=== PATIENT | female | born 1960 | race African-American/Black ===

== ENCOUNTER 2017-01-08 11:22 | Inpatient (IN) | payer OTHER ==
[2017-01-08 13:22] VITALS: BMI 21.3
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
[2017-01-08] MEDS ORDERED: NICOTINE POLACRILEX 2 MG GUM BC PRN (15:46)
[2017-01-08] MEDS ORDERED: IBUPROFEN 400 MG TABLET (FP) PO PRN (15:46)
[2017-01-08] MEDS ORDERED: chlordiazePOXIDE HCL 25 MG CAPSULE PO ONE (15:46)
[2017-01-08] MEDS ORDERED: P-EPHED 60MG/TRIPROLIDI 2.5MG TABLET PO PRN (15:46)
[2017-01-08] MEDS ORDERED: MAG HYDROX/AL HYDROX/SIMETH 30 ML UNIT-DOSE CUP PO PRN (15:46)
[2017-01-08] MEDS ORDERED: MAGNESIUM CITRATE 300 ML BOTTLE PO PRN (15:46)
[2017-01-08] MEDS ORDERED: guaiFENesin/D-METHORPHAN HB 10 ML UNIT-DOSE CUPS PO PRN (15:46)
[2017-01-08] MEDS ORDERED: MAGNESIUM HYDROX 2400MG/30ML ORAL SUSPENSION 30 ML CUP PO PRN (15:46)
[2017-01-08] MEDS ORDERED: ACETAMINOPHEN 325 MG TABLET (FP) PO PRN (15:46)
[2017-01-08] MEDS ORDERED: diphenhydrAMINE HCL 50 MG CAPSULE PO PRN (15:46)
[2017-01-08] MEDS ORDERED: chlordiazePOXIDE HCL 25 MG CAPSULE PO PRN (15:46)
[2017-01-08] MEDS ORDERED: LOPERAMIDE HCL 2 MG CAPSULE PO PRN (15:46)
[2017-01-08] MEDS ORDERED: hydrOXYzine PAMOATE 50 MG CAPSULE (FP) PO PRN (15:46)
[2017-01-08] MEDS ORDERED: MENTHOL/PHENOL 1 EACH UD MM PRN (15:46)
[2017-01-08] MEDS ORDERED: ALBUTEROL SO4 6.7 GM HFA INHALER IH PRN (15:58)
[2017-01-08] MEDS: chlordiazePOXIDE HCL 25 MG CAPSULE PO SCH ×2 (17:29→22:20)
[2017-01-08] MEDS: BACITRACIN 0.9 GM PACKET TP SCH (17:29)
[2017-01-08] MEDS: GABAPENTIN 300 MG CAPSULE (FP) PO SCH (22:20)
[2017-01-08] MEDS: THIAMINE HCL 100 MG TABLET (FP) PO SCH (22:20)
[2017-01-08 22:56] LABS: URINE APPEARANCE CLEAR; URINE BILIRUBIN NEGATIVE (NEGATIVE); URINE BLOOD NEGATIVE (NEGATIVE); URINE COLOR LTYELLOW; URINE GLUCOSE (UA) NEGATIVE (NEGATIVE); URINE KETONE NEGATIVE (NEGATIVE); URINE NITRITE NEGATIVE (NEGATIVE); URINE PROTEIN NEGATIVE (NEGATIVE); URINE UROBILINOGEN NEGATIVE E.U./dl (0.2-1.0)
[2017-01-08 23:09] LABS: URINE LEUK ESTERASE TRACE (NEGATIVE)
[2017-01-08 23:12] LABS: URINE BACTERIA RARE /hpf (NONE SEEN); URINE MUCUS RARE; URINE RBC 1 /hpf (0-3); URINE WBC 15 /hpf (3-5)
[2017-01-09] MEDS: chlordiazePOXIDE HCL 25 MG CAPSULE PO SCH ×5 (05:31→22:42)
[2017-01-09] MEDS: GABAPENTIN 300 MG CAPSULE (FP) PO SCH ×3 (05:31→22:42)
[2017-01-09 07:56] LABS: HIV 1 & 2 AB NEGATIVE; HIV 1 AGp24 NEGATIVE
[2017-01-09 10:00] LABS: MCH 31.5 pg (25.7-33.7); MCHC 32.6 g/dl (32.0-36.0); MEAN CELL VOLUME 96.5 fl (80-96); MEAN PLT VOLUME 8.5 fl (7.5-11.1); PLATELET COUNT 323 K/MM3 (134-434); RDW 12.9 % (11.6-15.6); WHITE BLOOD COUNT 5.4 K/mm3 (4.0-10.0)
[2017-01-09 10:35] LABS: ALK PHOS 138 U/L (45-117); ANION GAP 9 (8-16); BILIRUBIN,TOTAL 0.4 mg/dL (0.2-1.0); CALCIUM 9.4 mg/dL (8.5-10.1); CO2 25 mmol/L (21-32); CREATININE 0.8 mg/dL (0.55-1.02); GLUCOSE,RANDOM 79 mg/dL (74-106); SGOT/AST 22 U/L (15-37); SGPT/ALT 20 U/L (12-78); TOT PROT 7.6 g/dl (6.4-8.2)
[2017-01-09] MEDS: BACITRACIN 0.9 GM PACKET TP SCH (10:51)
[2017-01-09] MEDS: ASPIRIN 81 MG CHEWABLE TABLETS PO SCH (10:51)
[2017-01-09] MEDS: PRENATAL VITAMINS W/ FOLIC ACID TABLET (FP) PO SCH (10:51)
--- NOTE | 2017-01-09 13:44 | PN ---
[facility] CIWA - CIWA Score Nausea/Vomitin Muscle Tremors: 3 Anxiety: 3 Agitation: 2 Paroxysmal Sweats: 1-Minimal Palms Moist Orientation: 0-Oriented Tacttile Disturbances: 1-Very Mild Itch/Numbness Auditory Disturbances: 1-Very Mild Visual Disturbances: 1-Very Mild Sensitivity Headache: 2-Mild CIWA-Ar Total Score: 17 S Progress Note (SOAP) Subjective: ALERT,IRRITABLE,ANXIOUS,INTERRUPTED SLEEP,TREMOR Objective: 01/09/17 13:41 Vital Signs Temperature 97.2 F L 01/09/17 13:14 Pulse Rate 68 01/09/17 13:14 Respiratory Rate 18 01/09/17 13:14 Blood Pressure 104/69 01/09/17 13:14 O2 Sat by Pulse Oximetry (%) EKG NSR,RBBB,INVERTED T IN V2,V3 NO CHEST PAIN,NO SOB,NO DIZZINESS Laboratory Last Values WBC 5.4 K/mm3 (4.0-10.0) 01/09/17 06:00 RBC 3.84 M/mm3 (3.60-5.2) 01/09/17 06:00 Hgb 12.1 GM/dL (10.7-15.3) 01/09/17 06:00 Hct 37.1 % (32.4-45.2) 01/09/17 06:00 MCV 96.5 fl (80-96) H 01/09/17 06:00 MCHC 32.6 g/dl (32.0-36.0) 01/09/17 06:00 RDW 12.9 % (11.6-15.6) 01/09/17 06:00 Plt Count 323 K/MM3 (134-434) 01/09/17 06:00 MPV 8.5 fl (7.5-11.1) 01/09/17 06:00 Sickle Cell Screen Negative (NEGATIVE) 01/09/17 08:00 Sodium 142 mmol/L (136-145) 01/09/17 06:00 Potassium 4.2 mmol/L (3.5-5.1) 01/09/17 06:00 Chloride 108 mmol/L (98-107) H 01/09/17 06:00 Carbon Dioxide 25 mmol/L (21-32) 01/09/17 06:00 Anion Gap 9 (8-16) 01/09/17 06:00 BUN 6 mg/dL (7-18) L 01/09/17 06:00 Creatinine 0.8 mg/dL (0.55-1.02) 01/09/17 06:00 Creat Clearance w eGFR > 60 (>60) 01/09/17 06:00 Random Glucose 79 mg/dL (74-106) 01/09/17 06:00 Calcium 9.4 mg/dL (8.5-10.1) 01/09/17 06:00 Total Bilirubin 0.4 mg/dL (0.2-1.0) 01/09/17 06:00 AST 22 U/L (15-37) 01/09/17 06:00 ALT 20 U/L (12-78) 01/09/17 06:00 Alkaline Phosphatase 138 U/L (45-117) H 01/09/17 06:00 Total Protein 7.6 g/dl (6.4-8.2) 01/09/17 06:00 Albumin 4.0 g/dl (3.4-5.0) 01/09/17 06:00 Urine Color Ltyellow 01/08/17 22:22 Urine Appearance Clear 01/08/17 22:22 Urine pH 5.0 (5.0-8.0) 01/08/17 22:22 Ur Specific [place] 1.010 (1.005-1.025) 01/08/17 22:22 Urine Protein Negative (NEGATIVE) 01/08/17 22:22 Urine Glucose (UA) Negative (NEGATIVE) 01/08/17 22:22 Urine Ketones Negative (NEGATIVE) 01/08/17 22:22 Urine Blood Negative (NEGATIVE) 01/08/17 22:22 Urine Nitrite Negative (NEGATIVE) 01/08/17 22:22 Urine Bilirubin Negative (NEGATIVE) 01/08/17 22:22 Urine Urobilinogen Negative E.U./dl (0.2-1.0) 01/08/17 22:22 Ur Leukocyte Esterase Trace (NEGATIVE) H 01/08/17 22:22 Urine RBC 1 /hpf (0-3) 01/08/17 22:22 Urine WBC 15 /hpf (3-5) 01/08/17 22:22 Ur Epithelial Cells Few /hpf (FEW) 01/08/17 22:22 Urine Bacteria Rare /hpf (NONE SEEN) 01/08/17 22:22 Urine Mucus Rare 01/08/17 22:22 HIV 1&2 Antibody Screen Negative 01/08/17 15:00 HIV P24 Antigen Negative 01/08/17 15:00 Assessment: 01/09/17 13:43 WITHDRAWAL SYMPTOM Plan: CONTINUE DETOX
--- NOTE | 2017-01-09 15:47 | EKG ---
Test Reason : Blood Pressure : / mmHG Vent. Rate : 075 BPM Atrial Rate : 075 BPM P-R Int : 128 ms QRS Dur : 104 ms QT Int : 476 ms P-R-T Axes : 049 034 059 degrees QTc Int : 531 ms NORMAL SINUS RHYTHM INCOMPLETE RIGHT BUNDLE BRANCH BLOCK NONSPECIFIC T WAVE ABNORMALITY PROLONGED QT ABNORMAL ECG NO PREVIOUS ECGS AVAILABLE CLINICAL CORRELATION IS RECOMMENDED Confirmed by EMBER THORPE MD ([id number]) on 01/09/2017 3:47:20 PM Referred By: Confirmed By:EMBER THORPE MD
--- NOTE | 2017-01-09 17:45 | CONSULT ---
[facility] Psychiatric Consult - Data Date of interview: 01/09/17 Admission source: [facility] Identifying data: First admission to [facility] for this 56 y/o AA female seeking detox treatment for cocaine and alcohol dependence.Patient is , a mother of five,domiciled,unemployed and supported on welfare. Substance Abuse History: - Smoking Cessation. Smoking history: Current every day smoker. Have you smoked in the past 12 months: Yes. Aproximately how many cigarettes per day: 20. Cigars Per Day: 0. Hx Chewing Tobacco Use: No. Initiated information on smoking cessation: Yes. 'Breaking Loose' booklet given : 01/08/17 (GIVEN ON UNIT.). - Substance & Tx. History. Hx Alcohol Use: Yes. Hx Substance Use: Yes. Substance Use Type: Alcohol, Cocaine. Hx Substance Use Treatment: Yes (Many years ago; patient unable to remember name of facility.). - Substances Abused. Alcohol. Route: Oral. Frequency: Daily. Amount used : 10 40 oz beers. Age of first use: 16. Date of Last Use: 01/08/17. Crack. Route: Smoking. Frequency: Daily. Amount used: $50. Age of first use : 34. Date of Last Use: 01/08/17. Confirmed by patient. Medical History: Anemia,bronchial asthma,arthritis,lower back pain and a recent history of transient ischemic attacks. Psychiatric History: Patient is a poor historian.She admits to current psychiatric OPD care but she is unable to provide location.Diagnosed with MDD and Anxiety Disorder and prescribed lexapro and remeron (doses not recalled).Ms Rios reports a history of suicide attempts via various means (cutting, overdosing,running into traffic).Patient denies history of psychiatric hospitalizations. Physical/Sexual Abuse/Trauma History: Patient denies history of abuse. Additional Comment: Urine Drug Screen Results: ZULMA-Cocaine.Noted. Mental Status Exam - Mental Status Exam Alert and Oriented to: Time, Place, Person Cognitive Function: Grossly Intact (moderate memory deficits) Patient Appearance: Well Groomed Mood: Withdrawn, Anxious Affect: Constricted Patient Behavior: Fatigued, Appropriate, Cooperative Speech Pattern: Clear Voice Loudness: Normal Thought Process: Goal Oriented Thought Disorder: Not Present Hallucinations: Denies Suicidal Ideation: Denies Homicidal Ideation: Denies Insight/Judgement: Poor Sleep: Poorly, Difficulty falling asleep Appetite: Fair Muscle strength/Tone: Normal Gait/Station: Normal Psychiatric Findings - Problem List (Alpha 1, 2,3) (1) Alcohol dependence with uncomplicated withdrawal Current Visit: Yes Status: Acute (2) Cocaine dependence, uncomplicated Current Visit: Yes Status: Acute (3) Nicotine dependence Current Visit: Yes Status: Acute Qualifiers: Nicotine product type: cigarettes Substance use status: uncomplicated Qualified Code(s): F17.210 - Nicotine dependence, cigarettes, uncomplicated (4) Depressive disorder Current Visit: Yes Status: Chronic (5) Asthma Current Visit: Yes Status: Chronic Qualifiers: Asthma severity: mild intermittent Asthma complication type: uncomplicated Qualified Code(s): J45.20 - Mild intermittent asthma, uncomplicated (6) History of TIA (transient ischemic attack) Current Visit: Yes Status: Chronic (7) Insomnia Current Visit: Yes Status: Acute - Initial Treatment Plan Initial Treatment Plan: Psychoeducation.Detoxification.Medications : lexapro 20 mg po daily + remeron 7.5 mg po hs.Side effects/benefits discussed with patient.Eager to resume her medications.Consent (verbal) given.Observation.Pharmacy claims reviewed : scripts for remeron,gabapentin and lexapro were issued on 12/01/16 @ [facility]).
[2017-01-09] MEDS: THIAMINE HCL 100 MG TABLET (FP) PO SCH (22:41)
[2017-01-09] MEDS: MIRTAZAPINE 15 MG TABLET (FP) PO SCH (22:42)
[2017-01-10] MEDS: GABAPENTIN 300 MG CAPSULE (FP) PO SCH ×3 (06:30→22:10)
[2017-01-10] MEDS: chlordiazePOXIDE HCL 25 MG CAPSULE PO SCH ×2 (06:30→10:24)
[2017-01-10] MEDS: ASPIRIN 81 MG CHEWABLE TABLETS PO SCH (10:24)
[2017-01-10] MEDS: PRENATAL VITAMINS W/ FOLIC ACID TABLET (FP) PO SCH (10:24)
[2017-01-10] MEDS: ESCITALOPRAM OXALATE 20 MG TABLET (FP) PO SCH (10:24)
[2017-01-10] MEDS: BACITRACIN 0.9 GM PACKET TP SCH (10:24)
--- NOTE | 2017-01-10 11:36 | PN ---
S CIWA - CIWA Score Nausea/Vomitin Muscle Tremors: 3 Anxiety: 3 Agitation: 3 Paroxysmal Sweats: 1-Minimal Palms Moist Orientation: 0-Oriented Tacttile Disturbances: 1-Very Mild Itch/Numbness Auditory Disturbances: 1-Very Mild Visual Disturbances: 1-Very Mild Sensitivity Headache: 2-Mild CIWA-Ar Total Score: 18 BHS Progress Note (SOAP) Subjective: ALERT,IRRITABLE,ANXIOUS,INTERRUPTED SLEEP,TREMOR Objective: 01/10/17 11:34 Vital Signs Temperature 98.2 F 01/10/17 10:51 Pulse Rate 83 01/10/17 10:51 Respiratory Rate 16 01/10/17 10:51 Blood Pressure 95/71 01/10/17 10:51 O2 Sat by Pulse Oximetry (%) EKG NST,INVERTED T IN V 1 V2 V3 NO CHEST PAIN,NO SOB,NO DIZZINESS Laboratory Last Values WBC 5.4 K/mm3 (4.0-10.0) 01/09/17 06:00 RBC 3.84 M/mm3 (3.60-5.2) 01/09/17 06:00 Hgb 12.1 GM/dL (10.7-15.3) 01/09/17 06:00 Hct 37.1 % (32.4-45.2) 01/09/17 06:00 MCV 96.5 fl (80-96) H 01/09/17 06:00 MCHC 32.6 g/dl (32.0-36.0) 01/09/17 06:00 RDW 12.9 % (11.6-15.6) 01/09/17 06:00 Plt Count 323 K/MM3 (134-434) 01/09/17 06:00 MPV 8.5 fl (7.5-11.1) 01/09/17 06:00 Sickle Cell Screen Negative (NEGATIVE) 01/09/17 08:00 Sodium 142 mmol/L (136-145) 01/09/17 06:00 Potassium 4.2 mmol/L (3.5-5.1) 01/09/17 06:00 Chloride 108 mmol/L (98-107) H 01/09/17 06:00 Carbon Dioxide 25 mmol/L (21-32) 01/09/17 06:00 Anion Gap 9 (8-16) 01/09/17 06:00 BUN 6 mg/dL (7-18) L 01/09/17 06:00 Creatinine 0.8 mg/dL (0.55-1.02) 01/09/17 06:00 Creat Clearance w eGFR > 60 (>60) 01/09/17 06:00 Random Glucose 79 mg/dL (74-106) 01/09/17 06:00 Calcium 9.4 mg/dL (8.5-10.1) 01/09/17 06:00 Total Bilirubin 0.4 mg/dL (0.2-1.0) 01/09/17 06:00 AST 22 U/L (15-37) 01/09/17 06:00 ALT 20 U/L (12-78) 01/09/17 06:00 Alkaline Phosphatase 138 U/L (45-117) H 01/09/17 06:00 Total Protein 7.6 g/dl (6.4-8.2) 01/09/17 06:00 Albumin 4.0 g/dl (3.4-5.0) 01/09/17 06:00 Urine Color Ltyellow 01/08/17 22:22 Urine Appearance Clear 01/08/17 22:22 Urine pH 5.0 (5.0-8.0) 01/08/17 22:22 Ur Specific [place] 1.010 (1.005-1.025) 01/08/17 22:22 Urine Protein Negative (NEGATIVE) 01/08/17 22:22 Urine Glucose (UA) Negative (NEGATIVE) 01/08/17 22:22 Urine Ketones Negative (NEGATIVE) 01/08/17 22:22 Urine Blood Negative (NEGATIVE) 01/08/17 22:22 Urine Nitrite Negative (NEGATIVE) 01/08/17 22:22 Urine Bilirubin Negative (NEGATIVE) 01/08/17 22:22 Urine Urobilinogen Negative E.U./dl (0.2-1.0) 01/08/17 22:22 Ur Leukocyte Esterase Trace (NEGATIVE) H 01/08/17 22:22 Urine RBC 1 /hpf (0-3) 01/08/17 22:22 Urine WBC 15 /hpf (3-5) 01/08/17 22:22 Ur Epithelial Cells Few /hpf (FEW) 01/08/17 22:22 Urine Bacteria Rare /hpf (NONE SEEN) 01/08/17 22:22 Urine Mucus Rare 01/08/17 22:22 RPR Titer Nonreactive (NONREACTIVE) 01/09/17 06:00 HIV 1&2 Antibody Screen Negative 01/08/17 15:00 HIV P24 Antigen Negative 01/08/17 15:00 Assessment: 01/10/17 11:35 WITHDRAWAL SYMPTOM Plan: CONTINUE DETOX
[2017-01-10] MEDS: chlordiazePOXIDE 5 MG CAPSULE PO SCH ×2 (17:45→22:10)
[2017-01-10] MEDS: THIAMINE HCL 100 MG TABLET (FP) PO SCH (22:10)
[2017-01-10] MEDS: MIRTAZAPINE 15 MG TABLET (FP) PO SCH (22:10)
[2017-01-11] MEDS: GABAPENTIN 300 MG CAPSULE (FP) PO SCH ×3 (06:53→23:15)
[2017-01-11] MEDS: chlordiazePOXIDE 5 MG CAPSULE PO SCH ×2 (07:53→10:29)
--- NOTE | 2017-01-11 10:27 | PN ---
BHS Progress Note (SOAP) Subjective: sleepy sweats Objective: 01/11/17 10:27 Vital Signs Temperature 97.7 F 01/11/17 10:08 Pulse Rate 76 01/11/17 10:08 Respiratory Rate 18 01/11/17 10:08 Blood Pressure 129/76 01/11/17 10:08 O2 Sat by Pulse Oximetry (%) awake/alert ambulating no acute distress Assessment: 01/11/17 10:27 withdrawal sx Plan: continue detox increase fluids d/c in am
[2017-01-11] MEDS: ASPIRIN 81 MG CHEWABLE TABLETS PO SCH (10:28)
[2017-01-11] MEDS: PRENATAL VITAMINS W/ FOLIC ACID TABLET (FP) PO SCH (10:29)
[2017-01-11] MEDS: ESCITALOPRAM OXALATE 20 MG TABLET (FP) PO SCH (10:29)
[2017-01-11] MEDS: BACITRACIN 0.9 GM PACKET TP SCH (10:29)
[2017-01-11] MEDS ORDERED: IBUPROFEN 600 MG TABLET (FP) PO PRN (10:56)
[2017-01-11] MEDS: METHYL SALICYLATE/MENTHOL OINT 30 GM TUBE TP SCH ×2 (12:37→23:15)
[2017-01-11] MEDS: chlordiazePOXIDE HCL 10 MG CAPSULE PO SCH ×2 (17:35→23:15)
[2017-01-11] MEDS: MIRTAZAPINE 15 MG TABLET (FP) PO SCH (23:15)
[2017-01-11] MEDS: THIAMINE HCL 100 MG TABLET (FP) PO SCH (23:15)
[2017-01-11 23:24] VITALS: TEMP 98.2
[2017-01-12] MEDS: chlordiazePOXIDE HCL 10 MG CAPSULE PO SCH ×2 (06:42→10:37)
[2017-01-12] MEDS: GABAPENTIN 300 MG CAPSULE (FP) PO SCH (07:42)
--- NOTE | 2017-01-12 09:12 | DS ---
[facility] Detox Discharge Summary Admission Date: 01/08/17 Discharge Date: 01/12/17 - History Present History: Alcohol Dependence, Cocaine Dependence - Physical Exam Results Vital Signs: Vital Signs Temperature 98.2 F 01/11/17 23:23 Pulse Rate 92 H 01/11/17 23:23 Respiratory Rate 20 01/12/17 03:30 Blood Pressure 120/71 01/11/17 23:23 O2 Sat by Pulse Oximetry (%) - Treatment Hospital Course: Detox Protocol Followed, Detoxed Safely, Responded well, Discharged Condition Good, Rehab Referral Accepted - Medication Discharge Medications: Ambulatory Orders Albuterol Sulfate Inhaler - [Ventolin Hfa Inhaler -] 2 inh PO Q4H PRN 01/08/17 Aspirin [ASA -] 81 mg PO DAILY 01/08/17 Escitalopram Oxalate [Lexapro -] 20 mg PO DAILY 01/08/17 Gabapentin [Neurontin -] 300 mg PO Q8H 01/08/17 Hydroxyzine HCl [Atarax -] 25 mg PO Q8H PRN 01/08/17 Escitalopram Oxalate [Lexapro -] 20 mg PO DAILY #30 tablet 01/09/17 Mirtazapine [Remeron -] 15 mg PO HS #30 tablet 01/09/17 - Diagnosis (1) Alcohol dependence with uncomplicated withdrawal Current Visit: Yes Status: Chronic (2) Cocaine dependence, uncomplicated Current Visit: Yes Status: Chronic (3) Insomnia Current Visit: Yes Status: Chronic (4) Nicotine dependence Current Visit: Yes Status: Chronic Qualifiers: Nicotine product type: cigarettes Substance use status: uncomplicated Qualified Code(s): F17.210 - Nicotine dependence, cigarettes, uncomplicated (5) Asthma Current Visit: Yes Status: Chronic Qualifiers: Asthma severity: mild intermittent Asthma complication type: uncomplicated Qualified Code(s): J45.20 - Mild intermittent asthma, uncomplicated (6) Depressive disorder Current Visit: Yes Status: Chronic (7) History of TIA (transient ischemic attack) Current Visit: Yes Status: Chronic (8) History of bipolar disorder Current Visit: Yes Status: Chronic - AMA Did Patient Leave Against Medical Advice: No (pt will [facility])
[2017-01-12 09:55] VITALS: BP 123/76; PULSE 84
[2017-01-12] MEDS: PRENATAL VITAMINS W/ FOLIC ACID TABLET (FP) PO SCH (10:36)
[2017-01-12] MEDS: ASPIRIN 81 MG CHEWABLE TABLETS PO SCH (10:36)
[2017-01-12] MEDS: BACITRACIN 0.9 GM PACKET TP SCH (10:36)
[2017-01-12] MEDS: ESCITALOPRAM OXALATE 20 MG TABLET (FP) PO SCH (10:36)
[2017-01-12] MEDS: METHYL SALICYLATE/MENTHOL OINT 30 GM TUBE TP SCH (10:37)
== END 2017-01-12 12:40 | disposition other institution (70) | DRG 774 ==
LOC: YASAS 11:22 → Y6N 16:07
PROVIDERS: ADMIT Internal Medicine; ATTEND Internal Medicine
PROC: HZ2ZZZZ Detoxification Services for Substance Abuse Treatment (ICD-10-PCS; principal; 2017-01-08)
DX: F10.230 Alcohol dependence with withdrawal, uncomplicated (principal); F14.20 Cocaine dependence, uncomplicated; F17.210 Nicotine dependence, cigarettes, uncomplicated; F32.9 Major depressive disorder, single episode, unspecified; G47.00 Insomnia, unspecified; J45.20 Mild intermittent asthma, uncomplicated; D50.9 Iron deficiency anemia, unspecified; Z86.73 Personal history of transient ischemic attack (TIA), and cerebral infarction without residual deficits; Z87.42 Personal history of other diseases of the female genital tract; Z91.5 Personal history of self-harm
CPT/HCPCS: 36415; 80053; 81003; 81015; 85027; 85660; 86593; 86803; 87389; 93005; 93010

== ENCOUNTER 2017-01-12 12:28 | Inpatient (IN) | payer OTHER ==
[2017-01-12] MEDS ORDERED: IBUPROFEN 400 MG TABLET (FP) PO PRN (13:27)
[2017-01-12] MEDS ORDERED: LOPERAMIDE HCL 2 MG CAPSULE PO PRN (13:27)
[2017-01-12] MEDS ORDERED: P-EPHED 60MG/TRIPROLIDI 2.5MG TABLET PO PRN (13:27)
[2017-01-12] MEDS ORDERED: MENTHOL/PHENOL 1 EACH UD MM PRN (13:27)
[2017-01-12] MEDS ORDERED: MAGNESIUM HYDROX 2400MG/30ML ORAL SUSPENSION 30 ML CUP PO PRN (13:27)
[2017-01-12] MEDS ORDERED: ACETAMINOPHEN 325 MG TABLET (FP) PO PRN (13:27)
[2017-01-12] MEDS ORDERED: guaiFENesin/D-METHORPHAN HB 10 ML UNIT-DOSE CUPS PO PRN (13:27)
[2017-01-12] MEDS ORDERED: diphenhydrAMINE HCL 50 MG CAPSULE PO PRN (13:27)
[2017-01-12] MEDS ORDERED: MAGNESIUM CITRATE 300 ML BOTTLE PO PRN (13:27)
[2017-01-12] MEDS ORDERED: MAG HYDROX/AL HYDROX/SIMETH 30 ML UNIT-DOSE CUP PO PRN (13:27)
[2017-01-12] MEDS ORDERED: ALBUTEROL SO4 6.7 GM HFA INHALER IH PRN (13:28)
--- NOTE | 2017-01-12 13:30 | HP ---
[facility] Rehab Assess/Revision - Admission History Admitted to Rehab from: [facility] Date of Admission to Rehab: 01/12/17 - Vital signs Vital Signs: VSS - Findings Detox History & Physical reviewed: Yes Concur with findings: Yes
[2017-01-12 13:37] VITALS: BMI 23.4
[2017-01-12] MEDS: THIAMINE HCL 100 MG TABLET (FP) PO SCH (21:14)
--- NOTE | 2017-01-13 09:13 | HP ---
Psychiatrist Admission - Data Date of interview: 01/13/17 Admission source: [address] [place] [address] Identifying data: This is the first admission to [address] [place] [address] for this 56 yo mother of 5 ,resides in supportive housing(section8 ),[place]. Medical History: Significant for BA,H/O TIA. Psychiatric History: Patient reports long history of depression and couple of suicidal attempts including cutting herself,DOD,running in front of the traffic.She denies psychiatric hospitalizations,reports a few ER visits.She was dx with MDD ,then with Bipolar disorder.Current psychiatric follow up at [facility] in the [place].Medications:Remeron 7,5 mg po hs,Lexapro 20 mg po daily and Neurontin 300 mg po tid.Patient is willing to start antipsychotics since she is experiencing auditory hallucinations on and off (unclear voice, noise). Physical/Sexual Abuse/Trauma History: denies history of sexual abuse Vital Signs: Vital Signs - 24 hr 01/12/17 01/12/17 01/13/17 13:34 13:35 00:30 Temperature 98.8 F 98.8 F Pulse Rate 88 88 Respiratory 16 16 16 Rate Blood Pressure 114/79 114/79 01/13/17 01/13/17 03:30 06:34 Temperature 98.2 F Pulse Rate 75 Respiratory 16 18 Rate Blood Pressure 90/63 Allergies/Adverse Reactions: Allergies Allergy/AdvReac Type Severity Reaction Status Date / Time lactose Allergy Severe Verified 01/08/17 14:23 No Known Drug Allergies Allergy Verified 01/08/17 16:04 Date of last physical exam: 01/08/17 Concur with the findings of this exam: Yes - Substance Abuse/Tx History Hx Alcohol Use: Yes (reports drinking since 14 yo,100 40 oz of beer) Hx Substance Use: Yes (cocaine since 17 yo,spending $300 daily) Substance Use Type: Alcohol, Cocaine Hx Substance Use Treatment: Yes (longest time of abstinence 2 years) - Admission Criteria Previous failed treatment: Yes Poor recovery environment: Yes Comorbidities: Yes Lacks judgement: Yes Mental Status Exam - Mental Status Exam Alert and Oriented to: Time, Place, Person Cognitive Function: Grossly Intact Patient Appearance: Unkempt Mood: Sad, Anxious Affect: Labile Patient Behavior: Cooperative Speech Pattern: Clear Voice Loudness: Normal Thought Process: Goal Oriented Thought Disorder: Being Controlled Hallucinations: Denies Suicidal Ideation: Denies Homicidal Ideation: Denies Insight/Judgement: Fair Sleep: Fair Appetite: Good Muscle strength/Tone: Normal Gait/Station: Normal Psychiatric Findings - Problem List ([place] 1, 2,3) (1) Alcohol dependence with uncomplicated withdrawal Current Visit: Yes Status: Chronic (2) Asthma Current Visit: Yes Status: Chronic Qualifiers: (3) Cocaine dependence, uncomplicated Current Visit: Yes Status: Chronic (4) History of TIA (transient ischemic attack) Current Visit: Yes Status: Chronic (5) Nicotine dependence Current Visit: Yes Status: Chronic Qualifiers: (6) Bipolar II disorder Current Visit: Yes Status: Chronic - Initial Treatment Plan Initial Treatment Plan: Continue Remeron 7,5 mg po hs,Neurontin 300 mg po tid, Lexapro 20 mg po daily,start Zyprexa 2,5 mg po bid.Will monitor progress.
[2017-01-13] MEDS: ASPIRIN 81 MG CHEWABLE TABLETS PO SCH (09:50)
[2017-01-13] MEDS: PRENATAL VITAMINS W/ FOLIC ACID TABLET (FP) PO SCH (09:50)
[2017-01-13] MEDS: ESCITALOPRAM OXALATE 20 MG TABLET (FP) PO SCH (10:31)
[2017-01-13] MEDS: OLANZapine 2.5 MG TABLET PO SCH ×2 (10:31→21:18)
[2017-01-13] MEDS: GABAPENTIN 300 MG CAPSULE (FP) PO SCH ×2 (14:08→21:18)
[2017-01-13] MEDS: THIAMINE HCL 100 MG TABLET (FP) PO SCH (21:18)
[2017-01-13] MEDS: NICOTINE POLACRILEX 2 MG GUM BUC PRN (21:20)
[2017-01-13] MEDS: MIRTAZAPINE 15 MG TABLET (FP) PO SCH (21:20)
[2017-01-14] MEDS: GABAPENTIN 300 MG CAPSULE (FP) PO SCH ×3 (06:45→21:14)
[2017-01-14] MEDS: PRENATAL VITAMINS W/ FOLIC ACID TABLET (FP) PO SCH (10:02)
[2017-01-14] MEDS: ESCITALOPRAM OXALATE 20 MG TABLET (FP) PO SCH (10:02)
[2017-01-14] MEDS: OLANZapine 2.5 MG TABLET PO SCH ×2 (10:02→21:14)
[2017-01-14] MEDS: ASPIRIN 81 MG CHEWABLE TABLETS PO SCH (10:03)
[2017-01-14] MEDS: THIAMINE HCL 100 MG TABLET (FP) PO SCH (21:14)
[2017-01-14] MEDS: MIRTAZAPINE 15 MG TABLET (FP) PO SCH (21:15)
[2017-01-14] MEDS: NICOTINE POLACRILEX 2 MG GUM BUC PRN (21:15)
[2017-01-15] MEDS: GABAPENTIN 300 MG CAPSULE (FP) PO SCH ×2 (06:55→13:10)
[2017-01-15] MEDS: ASPIRIN 81 MG CHEWABLE TABLETS PO SCH (09:59)
[2017-01-15] MEDS: ESCITALOPRAM OXALATE 20 MG TABLET (FP) PO SCH (10:00)
[2017-01-15] MEDS: PRENATAL VITAMINS W/ FOLIC ACID TABLET (FP) PO SCH (10:00)
[2017-01-15] MEDS: OLANZapine 2.5 MG TABLET PO SCH (10:01)
[2017-01-15 14:09] VITALS: BP 99/66; PULSE 74; TEMP 98.1
--- NOTE | 2017-01-15 16:11 | PN ---
Psychiatric Progress Note Vital Signs: Vital Signs Period Temp Pulse Resp BP Sys/Alexandra Pulse Ox Last 24 Hr 97.8 F-98.1 F 70-98 16-18 84-99/57-66 Date of Session: 01/15/17 Chief Complaint:: Discharge visit HPI: Patient addressed Alcohol and Cocaine dependence comorbid with Bipolar II disorder. ROS: Significant for TIA,BA. Current Medications: Active Medications Generic Name Dose Route Start Last Admin Trade Name Freq PRN Reason Stop Dose Admin Acetaminophen 650 mg 01/12/17 13:27 Tylenol - PO Q4H PRN FEVER OR PAIN Al Hydroxide/Mg Hydroxide 30 ml 01/12/17 13:27 Mylanta Oral Suspension - PO Q6H PRN DYSPEPSIA Albuterol Sulfate 2 puff 01/12/17 13:28 Ventolin Hfa Inhaler - IH Q4H PRN ASTHMA Aspirin 81 mg 01/13/17 10:00 01/15/17 09:59 Asa - PO 81 mg DAILY JULIETA Administration Diphenhydramine HCl 50 mg 01/12/17 13:27 01/12/17 21:14 Benadryl - PO 50 mg HSMR1 PRN Administration FOR ITCHING Escitalopram Oxalate 20 mg 01/16/17 22:00 Lexapro - PO HS JULIETA Eucalyptus/Menthol/Phenol/Sorbitol 1 each 01/12/17 13:27 Cepastat Lozenge - MM Q4H PRN SORE THROAT Gabapentin 300 mg 01/13/17 14:00 01/15/17 13:10 Neurontin - PO Not Given TID JULIETA Guaifenesin 10 ml 01/12/17 13:27 Robitussin Dm - PO Q6H PRN COUGH Ibuprofen 400 mg 01/12/17 13:27 Motrin - PO Q6H PRN PAIN Loperamide HCl 4 mg 01/12/17 13:27 Imodium - PO Q6H PRN DIARRHEA Magnesium Hydroxide 30 ml 01/12/17 13:27 Milk Of Magnesia - PO DAILY PRN CONSTIPATION Mirtazapine 7.5 mg 01/13/17 22:00 01/14/17 21:15 Remeron - PO 7.5 mg HS JULIETA Administration Nicotine Polacrilex 2 mg 01/12/17 13:27 01/14/17 21:15 Nicorette Gum - BUC 2 mg Q2H PRN Administration NICOTINE REPLACEMENT RX Olanzapine 5 mg 01/16/17 22:00 Zyprexa - PO HS JULIETA Multivit/Folic Acid/Iron 1 tab 01/13/17 10:00 01/15/17 10:00 Vitamins (Sjr) - PO 1 tab DAILY JULIETA Administration Pseudoephedrine/Triprolidine 1 combo 01/12/17 13:27 Actifed - PO TID PRN NASAL CONGESTION Thiamine HCl 100 mg 01/12/17 22:00 01/14/17 21:14 Vitamin B1 - PO 100 mg HS JULIETA Administration Current Side Effect: No Lab tests ordered: No Lab tests reviewed: Yes Provider note:: Patient decided to sign out this program today,She reports that she needs to see her pain management dr and restarted pain killers .[employer] and other medical staff made efforts to convince her to continue stabilization in inpatient facility,but patient ignored our recommendations.She didnt meet her treatment gols and will continue to address her issues on outpatient basis at [facility].Patient will continue current medications as per plan: Remeron 7,5 mg po hs,Lexapro 20 mg po daily,Neurontin 300 mg po tid and Zyprexa 5 mg po hs.Scripts provided. Total face to face time:: 30 Mental Status Exam - Mental Status Exam Alert and Oriented to: Time, Place, Person Cognitive Function: Grossly Intact Patient Appearance: Unkempt Mood: Irritable Affect: Labile Patient Behavior: Restless, Distractible, Resitive to Care Speech Pattern: Clear Voice Loudness: Normal Thought Process: Goal Oriented Thought Disorder: Not Present Hallucinations: Denies Suicidal Ideation: Denies Homicidal Ideation: Denies Insight/Judgement: Fair Sleep: Fair Appetite: Fair Muscle strength/Tone: Normal Gait/Station: Normal Psychiatric Treatment Plan - Problem List (1) Alcohol dependence with uncomplicated withdrawal Current Visit: Yes (2) Asthma Current Visit: Yes Qualifiers: (3) Cocaine dependence, uncomplicated Current Visit: Yes (4) History of TIA (transient ischemic attack) Current Visit: Yes (5) Nicotine dependence Current Visit: Yes Qualifiers: (6) Bipolar II disorder Current Visit: Yes
[2017-01-16] MEDS ORDERED: OLANZapine 5 MG TABLET PO SCH (22:00)
[2017-01-16] MEDS ORDERED: ESCITALOPRAM OXALATE 20 MG TABLET (FP) PO SCH (22:00)
== END 2017-01-15 14:30 | disposition left against medical advice (07) | DRG 770 ==
LOC: YASAS 12:28 → Y3E 12:30
PROVIDERS: ADMIT Psychiatry & Neurology Psychiatry; ATTEND Psychiatry & Neurology Psychiatry
PROC: HZ42ZZZ Group Counseling for Substance Abuse Treatment, Cognitive-Behavioral (ICD-10-PCS; principal; 2017-01-12)
DX: F10.20 Alcohol dependence, uncomplicated (principal); F14.20 Cocaine dependence, uncomplicated; F17.210 Nicotine dependence, cigarettes, uncomplicated; F31.81 Bipolar II disorder; J45.909 Unspecified asthma, uncomplicated; Z86.73 Personal history of transient ischemic attack (TIA), and cerebral infarction without residual deficits